=== PATIENT | male | born 1950 | race Caucasian/White ===

== ENCOUNTER 2017-05-09 10:38 | Emergency (ER) | payer SELFPAY ==
--- NOTE | 2017-05-09 10:53 | EDPHY ---
H & P Time Seen by Provider: 05/09/17 10:50 HPI/ROS: HPI: This is a 66-year-old male who presents with Chief Complaint: Lower abdominal pressure Location: Suprapubic Quality: Pressure Duration: Several days Signs and Symptoms: No fever, no chills, no weight loss, + urinary hesitancy, + incomplete bladder emptying, no back pain, no discharge, no burning with urination, no nausea, no vomiting Timing: Constant Severity: Moderate Context: Patient was brought in by EMS who were called to [place] by police for patient stating that he worked at the event. 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 The [place] police state he is not an employee. He reports that he lives in [place] but unable to give an address. He complains of suprapubic pressure and he may have a UTI. Positive urinary retention, positive hesitancy, positive incomplete bladder emptying. Modifying Factors: Taking azo Comment: ROS: Limited due to altered mentation and inconsistent stories Constitutional: No fever, no chills, no weight loss Eyes: No blurred vision Respiratory: No shortness of breath, no cough Cardiovascular: No chest pain Gastrointestinal: No nausea, no vomiting no diarrhea Genitourinary: No dysuria Extremities: No myalgias Neurologic: No weakness, no numbness Skin: No rashes Hematologic: No bruising, no bleeding Source: Patient Exam Limitations: Clinical condition - Physical Exam Exam: CONSTITUTIONAL: Elderly white male, appropriately dressed, talkative, cooperative, nontoxic in appearance, awake and alert, no obvious distress HEENT: Atraumatic and normocephalic, long white handlebar mustache. PERRL, EOMI. Tympanic membranes clear. Oropharynx clear, no exudate and moist pink mucosa. Airway patent. No lymphadenopathy. No meningismus. Cardiovascular: Normal S1/S2, regular rate, regular rhythm, without murmur rub or gallop. PULMONARY/CHEST: Symmetrical and nontender. Clear to auscultation bilaterally Good air movement. No accessory muscle usage. ABDOMEN: Soft, nondistended, mild suprapubic tenderness, no rebound, no guarding, no peritoneal signs, no masses or organomegaly. No CVAT. EXTREMITIES: 2/2 pulses, no deformities, no clubbing, no cyanosis or edema. NEUROLOGICAL: no focal neuro deficits. GCS 15. Ambulatory without deficits. Moving all 4 extremities without difficulty. SKIN: Warm and dry, no erythema. no rash. Good capillary refill. Constitutional: Initial Vital Signs Temperature (C) 36.9 C 05/09/17 10:55 Heart Rate 95 05/09/17 10:55 Respiratory Rate 18 05/09/17 10:55 Blood Pressure 157/101 H 05/09/17 10:55 O2 Sat (%) 98 05/09/17 10:55 O2 Delivery Mode Room Air Allergies/Adverse Reactions: No Known Allergies Allergy (Unverified 05/09/17 10:54) Home Medications: Medication Instructions Recorded Ciprofloxacin [Cipro] 500 mg PO BID #20 tab 05/09/17 Tamsulosin HCl [Flomax 0.4 MG (*)] 0.4 mg PO DAILY #10 cap 05/09/17 Medical Decision Making - Diagnostics Imaging Results: Imaging Impressions Head CT 05/09/17 10:49 Impression: 1. Mild cerebral atrophy. 2. No epidural or subdural hematoma. 3. Consider MRI of the brain without and with contrast enhancement, if there is continued clinical concern. Findings and recommendations discussed with Emergency Department, EDWIN Najera, at 1203 hours on May 09, 2017. Final report concurs with initial preliminary interpretation. ED Course/Re-evaluation: Head CT scan due to altered mentation and unsure of baseline ordered, urinalysis , bladder scan, labs, blood culture ordered Bladder scan shows between 200-300 mL. 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 She does not know where he lives. She does advised that the [employer] basketball team through him a birthday alliance party in September. 1130: now admits to the nurse that he was laid off from [employer] several years ago. 1153: called by Radiology and Head CT scan shows no acute intracranial process UA shows infection; sent for culture; IV Rocephin given; Rx Cipro advertising assistant manager consult with [place] who arranged for follow-up with [facility] and given community resources Differential Diagnosis: Urinary retention including but not limited to medication side effect, neurologic causes, outflow obstruction including prostatic hypertrophy, and blood. - Data Points Laboratory Results: Laboratory Results 05/09/17 10:46 05/09/17 10:46 05/09/17 05/09/17 05/09/17 12:40 10:46 10:46 WBC RBC Hgb Hct MCV MCH MCHC RDW Plt Count MPV Neut % (Auto) Lymph % (Auto) [place] % (Auto) Eos % (Auto) Baso % (Auto) Nucleat RBC Rel Count Absolute Neuts (auto) Absolute Lymphs (auto) Absolute Monos (auto) Absolute Eos (auto) Absolute Basos (auto) Absolute Nucleated RBC Immature Gran % Immature Gran # VBG Lactic Acid 2.1 mmol/L mmol/L (0.7-2.1) Sodium 139 mEq/L mEq/L (134-144) Potassium 4.0 mEq/L mEq/L (3.5-5.2) Chloride 100 mEq/L mEq/L (97-110) Carbon Dioxide 22 mEq/l mEq/l (22-31) Anion Gap 17 mEq/L H mEq/L (8-16) BUN 17 mg/dL mg/dL (7-23) Creatinine 0.9 mg/dL mg/dL (0.7-1.3) Estimated GFR > 60 Glucose 114 mg/dL H mg/dL (70-100) Calcium 10.2 mg/dL mg/dL (8.5-10.4) Urine Color ORANGE Urine Appearance CLOUDY Urine pH HEALTH AND SAFETY REPRESENTATIVE Ur Specific [place] HEALTH AND SAFETY REPRESENTATIVE Urine Protein HEALTH AND SAFETY REPRESENTATIVE Urine Ketones HEALTH AND SAFETY REPRESENTATIVE Urine Blood HEALTH AND SAFETY REPRESENTATIVE Urine Nitrate HEALTH AND SAFETY REPRESENTATIVE Urine Bilirubin HEALTH AND SAFETY REPRESENTATIVE Urine Urobilinogen HEALTH AND SAFETY REPRESENTATIVE Ur Leukocyte Esterase HEALTH AND SAFETY REPRESENTATIVE Urine RBC 50-182 /hpf H /hpf (0-3) Urine WBC 50-182 /hpf H /hpf (0-3) Ur Epithelial Cells TRACE /lpf /lpf (NONE-1+) Urine Bacteria 4+ /hpf H /hpf (NONE SEEN) Urine Glucose HEALTH AND SAFETY REPRESENTATIVE 05/09/17 10:46 WBC 6.96 10^3/uL 10^3/uL (3.80-9.50) RBC 4.32 10^6/uL L 10^6/uL (4.40-6.38) Hgb 14.6 g/dL g/dL (13.7-17.5) Hct 42.9 % % (40.0-51.0) MCV 99.3 fL fL (81.5-99.8) MCH 33.8 pg pg (27.9-34.1) MCHC 34.0 g/dL g/dL (32.4-36.7) RDW 11.8 % % (11.5-15.2) Plt Count 327 10^3/uL 10^3/uL (150-400) MPV 9.3 fL fL (8.7-11.7) Neut % (Auto) 68.9 % % (39.3-74.2) Lymph % (Auto) 21.7 % % (15.0-45.0) [place] % (Auto) 7.3 % % (4.5-13.0) Eos % (Auto) 1.1 % % (0.6-7.6) Baso % (Auto) 0.6 % % (0.3-1.7) Nucleat RBC Rel Count 0.0 % % (0.0-0.2) Absolute Neuts (auto) 4.79 10^3/uL 10^3/uL (1.70-6.50) Absolute Lymphs (auto) 1.51 10^3/uL 10^3/uL (1.00-3.00) Absolute Monos (auto) 0.51 10^3/uL 10^3/uL (0.30-0.80) Absolute Eos (auto) 0.08 10^3/uL 10^3/uL (0.03-0.40) Absolute Basos (auto) 0.04 10^3/uL 10^3/uL (0.02-0.10) Absolute Nucleated RBC 0.00 10^3/uL 10^3/uL (0-0.01) Immature Gran % 0.4 % % (0.0-1.1) Immature Gran # 0.03 10^3/uL 10^3/uL (0.00-0.10) VBG Lactic Acid Sodium Potassium Chloride Carbon Dioxide Anion Gap BUN Creatinine Estimated GFR Glucose Calcium Urine Color Urine Appearance Urine pH Ur Specific [place] Urine Protein Urine Ketones Urine Blood Urine Nitrate Urine Bilirubin Urine Urobilinogen Ur Leukocyte Esterase Urine RBC Urine WBC Ur Epithelial Cells Urine Bacteria Urine Glucose Departure - Departure Disposition: Home, Routine, Self-Care Clinical Impression: UTI (urinary tract infection) Qualifiers: Urinary tract infection type: acute cystitis Hematuria presence: without hematuria Qualified Code(s): N30.00 - Acute cystitis without hematuria Condition: Fair Instructions: Urinary Tract Infection in Men (ED) Additional Instructions: Take all antibiotics as directed until complete. Take Flomax daily. Establish care with [facility]. Referrals: [facility],. [Clinic] - 5-7 days, call for appt. Prescriptions: Ciprofloxacin [Cipro] 500 mg PO BID #20 tab Tamsulosin HCl [Flomax 0.4 MG (*)] 0.4 mg PO DAILY #10 cap
[2017-05-09 10:57] LABS: % IMMATURE GRANULYOCYTES 0.4 % (0.0-1.1); ABSOLUTE IMMATURE GRANULOCYTES 0.03 10^3/uL (0.00-0.10); ADD DIFF? NO; ADD MORPH? NO; ADD SCAN? NO; ATYPICAL LYMPHOCYTE FLAG 10 (0-99); FRAGMENT RBC FLAG 0 (0-99); HEMATOCRIT 42.9 % (40.0-51.0); HEMOGLOBIN 14.6 g/dL (13.7-17.5); LEFT SHIFT FLG 0 (0-99); LIPEMIA HEMOLYSIS FLAG 90 (0-99); MEAN CELL HEMOGLOBIN 33.8 pg (27.9-34.1); MEAN CELL VOLUME 99.3 fL (81.5-99.8); MEAN PLATELET VOLUME 9.3 fL (8.7-11.7); PLATELET CLUMPS FLAG 0 (0-99); PLATELET COUNT 327 10^3/uL (150-400); RED BLOOD CELL COUNT 4.32 10^6/uL (4.40-6.38); RED CELL DISTRIBUTION WIDTH 11.8 % (11.5-15.2)
[2017-05-09 11:11] LABS: ANION GAP 17 mEq/L (8-16); CALCIUM 10.2 mg/dL (8.5-10.4); CARBON DIOXIDE 22 mEq/l (22-31); CHLORIDE 100 mEq/L (97-110); CREATININE 0.9 mg/dL (0.7-1.3); GLOMERULAR FILTRATION RATE > 60; GLUCOSE 114 mg/dL (70-100); SODIUM 139 mEq/L (134-144)
[2017-05-09 13:04] LABS: COLOR ORANGE
[2017-05-09 13:16] LABS: BACTERIA 4+ /hpf (NONE SEEN); RBC,URINE 50-182 /hpf (0-3); WBC,URINE 50-182 /hpf (0-3)
[2017-05-09] MEDS ORDERED: TAMSULOSIN HCL 0.4 MG CAP PO ONE (13:25)
[2017-05-09 14:43] VITALS: BP 133/83; PULSE 75; RESP 16; TEMP 98.6; O2SAT 95
== END 2017-05-09 14:38 | disposition home or self-care (01) ==
LOC: EDUNIT#
DX: N30.00 Acute cystitis without hematuria (principal); B96.89 Other specified bacterial agents as the cause of diseases classified elsewhere
CPT/HCPCS: 96365; J0696